=== PATIENT | male | born 1950 | race Caucasian/White ===

== ENCOUNTER 2020-12-06 14:58 | Emergency (ER) | payer MEDICARE ==
[~2020-12-06] VITALS: Ht 182.9 cm; Wt 111.1 kg
[2020-12-06] MEDS ORDERED: LISINOPRIL20 MG PO (15:30)
[2020-12-06] MEDS ORDERED: HYDROCHLOROTH12.5 M1 PO (15:30)
[2020-12-06 16:29] LABS: ABSOLUTE BASOPHILS 0.1 thou/uL (0.0-0.2); ABSOLUTE LYMPHOCYTES 1.1 thou/uL (0.8-5.3); ABSOLUTE MONOCYTES 0.6 thou/uL (0.0-1.2); BASOPHILS 0.7 %; EOSINOPHILS 0.1 %; HEMATOCRIT 43.6 % (42.0-52.0); HEMOGLOBIN 15.1 gm/dL (14.0-18.0); MCH 32.3 pg (26.0-34.0); MCHC 34.6 g/dL (28.0-37.0); MCV 93.3 fL (80.0-100.0); MONOCYTES 5.7 %; MPV 7.9 fl. (7.2-11.1); NUCLEATED RBCS 0 /100WBC; PLATELET COUNT* 211 thou/uL (150-400); POLYS 83.5 %; RBC 4.68 mil/uL (4.50-6.00); RDW-CV 13.3 % (10.5-14.5); WBC 10.8 thou/uL (4.0-11.0)
[2020-12-06 16:38] LABS: CALCIUM 9.5 mg/dL (8.5-10.1); CREATININE 1.8 mg/dL (0.6-1.3); POTASSIUM 3.6 mmol/L (3.5-5.1)
[2020-12-06 16:52] LABS: ALBUMIN 4.4 g/dL (3.4-5.0); CK-MB MASS 1.2 ng/mL (<0.5-3.6); MAGNESIUM 1.9 mg/dL (1.8-2.4); TOTAL BILIRUBIN 0.6 mg/dL (<0.1-1.0); TOTAL PROTEIN 8.1 g/dL (6.4-8.2)
[2020-12-06 17:14] VITALS: BP 143/86
--- NOTE | 2020-12-07 12:50 | EKG ---
[place] [address] ELECTROCARDIOGRAM REPORT Name: ROSA ISELA FLEMING Room: [facility]#: [id number] Admission: 12/06/20 Attend Phys: Discharge: 12/06/20 Date of : 50 Date of Service: 12/06/20 1607 Report #: [id number] THIS REPORT FOR: //name// [facility] ED Test Date: 2020-12-06 Test Time: 16:07:11 Pat Name: ROSA ISELA FLEMING Department: Room: Gender: City Driver: : 1950 Requested By: Nathan Coreas Order Number: [id number] MD: Deni Rao Measurements Intervals [place] Rate: 88 P: 64 MI: 190 QRS: 5 QRSD: 85 T: 62 QT: 367 QTc: 444 Interpretive Statements Sinus rhythm No previous ECG available for comparison Electronically Signed On 12-07-2020 12:50:09 CDT by Deni Rao [email or web address] <ELECTRONICALLY SIGNED> By: Deni Rao MD, [facility] 12/07/20 1250 1607 1607 Deni Rao MD, [facility] /EPI
== END 2020-12-06 17:16 | disposition home or self-care (01) ==
LOC: M.ERS 14:58
PROVIDERS: Family Medicine
DX: R06.00 Dyspnea, unspecified (principal); R53.83 Other fatigue; R06.02 Shortness of breath